=== PATIENT | female | born 1960 | race Caucasian/White ===

== ENCOUNTER → 2017-09-19 | Outpatient (CLI) | payer BC | LOC: RAD 13:23 | DX: M47.892 Other spondylosis, cervical region (principal); M46.02 Spinal enthesopathy, cervical region ==

== ENCOUNTER → 2018-05-06 | Outpatient (CLI) | payer BC, OTHER | LOC: RAD 13:48 | DX: R06.02 Shortness of breath (principal); R50.9 Fever, unspecified ==

== ENCOUNTER → 2020-02-08 | Outpatient (CLI) | payer BC, OTHER | LOC: ULTRA 14:13 | PROVIDERS: ATTEND Nurse Practitioner | DX: I65.23 Occlusion and stenosis of bilateral carotid arteries (principal); R26.89 Other abnormalities of gait and mobility; H53.9 Unspecified visual disturbance ==